=== PATIENT | female | born 1975 | race Caucasian/White ===

== ENCOUNTER 2025-08-07 08:52 | Outpatient (REF) | payer BC, SELFPAY ==
[2025-08-07 11:04] LABS: MANUAL DIFF FLAG NO
[2025-08-07 11:20] LABS: Hematocrit 43.3 % (37.0-47.0); Hemoglobin 14.8 g/dl (12.0-16.0); Imm Gran Abs Auto 0.01 X10*3/uL (0.00-0.03); Imm Gran Pct Auto 0.2 % (0.0-0.4); Lymphocytes Absolute Auto 1.7 X10*3/uL (1.2-4.9); Mean Corpuscular HGB Conc 34.2 g/dl (31.0-35.0); Mean Corpuscular Hemoglobin 30.1 pg (27.0-33.0); Mean Corpuscular Volume 88.2 fL (80.0-98.0); NRBC Abs Auto 0.000 X10*3/uL (0.0-0.012); NRBC Pct Auto 0.0 /100WBC (0.0-0.2); Platelet Count 313 X10*3/uL (160-400); Red Blood Count 4.91 X10*6/uL (4.20-5.50); White Blood Count 6.2 X10*3/uL (4.8-10.8)
[2025-08-07 12:12] LABS: Erythrocyte Sedimentation Rate 10 MM/HR (0-20)
[2025-08-07 12:23] LABS: Alanine Aminotransferase 16 U/L (0-31); Albumin Level 5.0 g/dL (3.5-5.0); Alkaline Phosphatase 65 U/L (39-117); Anion Gap 12 (12-20); Aspartate Amino Transferase 22 U/L (5-31); Blood Urea Nitrogen 8 mg/dL (9-16); Calcium 9.3 mg/dL (8.4-10.2); Carbon Dioxide 28 mmol/L (22-29); Chloride 104 mmol/L (96-108); Cholesterol 214 mg/dL (<200); Estimated Glomerular Filt Rate > 60; HDL Cholesterol 51 mg/dL (>40); Magnesium 2.3 mg/dL (1.6-2.6); Potassium 3.3 mmol/L (3.3-5.1); Sodium 141 mmol/L (135-145); Total Protein 7.9 g/dL (6.5-8.0); Triglycerides 83 mg/dL (<150)
[2025-08-07 12:31] LABS: Folate 10.9 ng/mL (> or = 4.0); Vitamin B12 463 pg/mL (200-900)
[2025-08-07 14:14] LABS: Appearance Urine Cloudy; Glucose Urine UA Negative (Negative); PH 6.0 (5.0-9.0); Specific Gravity - Urine 1.020 (1.005-1.025)
[2025-08-07 14:48] LABS: Microalbum/Creatinine Ratio Ur 12.8 ug/mg cr (<30)
[2025-08-08 06:18] LABS: Immunoglobulin A 145 mg/dL (47-310)
[2025-08-08 09:38] LABS: Lyme Abs Screen <0.90 index
[2025-08-08 21:03] LABS: Antibody to SS-A Antigen <1.0 NEG AI (<1.0 NEG); Antibody to SS-B Antigen <1.0 NEG AI (<1.0 NEG); Transglutaminase Ab IgG <1.0 U/mL
[2025-08-10 21:33] LABS: Anti Nuclear Antibody Screen NEGATIVE (NEGATIVE)
== END 2025-08-07 08:53 | disposition home or self-care (01) ==
LOC: HO.WFDLDS 08:52
PROVIDERS: PCP Physician Assistant; Visit Provider Physician Assistant
DX: R53.83 Other fatigue (principal); F41.1 Generalized anxiety disorder; F41.0 Panic disorder [episodic paroxysmal anxiety]; R19.7 Diarrhea, unspecified; R30.0 Dysuria; H04.129 Dry eye syndrome of unspecified lacrimal gland; M13.0 Polyarthritis, unspecified; K21.9 Gastro-esophageal reflux disease without esophagitis; J32.9 Chronic sinusitis, unspecified; B96.89 Other specified bacterial agents as the cause of diseases classified elsewhere; Z15.01 Genetic susceptibility to malignant neoplasm of breast; Z15.09 Genetic susceptibility to other malignant neoplasm; R14.0 Abdominal distension (gaseous); Z79.899 Other long term (current) drug therapy
CPT/HCPCS: 36415; 80053; 80061; 81003; 82043; 82570; 82607; 82746; 82784; 83735; 84443; 85025; 85652; 86038; 86140; 86231; 86235; 86364; 86431; 86617; 86618; 96127

== ENCOUNTER 2025-08-07 08:52 | Outpatient (AMB) | payer BC, SELFPAY ==
--- NOTE | 2025-08-07 08:58 | MHC.PC.OV ---
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 Note: New patient visit Peanut Sheller Required: No Allergies acetaminophen (From Percocet) Allergy (Severe, Verified 08/07/25 09:23) Vomiting codeine Allergy (Severe, Verified 08/07/25 09:23) Vomiting oxycodone (From Percocet) Allergy (Severe, Verified 08/07/25 09:23) Vomiting bioxin Allergy (Severe, Uncoded 08/07/25 09:23) Vomiting Medication List - Last Reconciled 08/07/25 by Naz Worrell PA-C escitalopram oxalate (Lexapro) 5 mg PO DAILY omeprazole 20 mg PO DAILY Tobacco use date assessed: 08/07/25 Dental Screening Dental Screen Date: 08/07/25 Did you have a dental visit in the last 12 months?: No Did you have a dental problem in the last 6 months where you did not have access to dental care?: No Was dental information given to patient?: Patient has dentist 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 She has a hx of ANJELICA gene, bilateral mastectomy, generalized anxiety, depression, gerd HEENT: Reports today that she has had sinus pain and pressure for the last week or so. It started with cold symptoms and then has seemed to settle into her sinuses. She reports maxillary sinus tenderness. No fevers or chills. She just does not feel like she is getting better. She has not really tried anything for her symptoms. She also reports dry eyes. She wonders if she could have Sjogren's as she saw an eye doctor a few years ago and they told her that that was a possibility but her only symptom at the time was dry eyes MSK: Does report that she has hip and knee pain and just overall feels achy in her joints. Breast: has a higher genetic risk of breast cancer and had a double mastectomy after having abnormal imaging of bilateral breasts but ultimately was not noted to have breast cancer.. Her aunt, mother, grandmother and cousin (maternal line) all have had breast cancer. Heme/onc: Has a higher risk of pancreatic ca and breast ca and following with [facility] and plans pancreatic screening summer 2025. She had 2 cousins with pancreatic cancer and as listed above multiple family members with breast cancer and her father had lung cancer. GI: She reports a history of IBS and GERD. She reports over the last few months having increased nausea and diarrhea with eating. The diarrhea is every day. Sometimes it feels like driving can even trigger the diarrhea. She is compliant with the omeprazole. Has not noticed any change in weight. She does feel bloated and does have some abdominal pain especially with the diarrhea. The pain seems to resolve with the diarrhea but the bloating does not improve. She has not tried any elimination diet. She has not noticed any blood or mucus in the stools. She can not recall the last time she had a normal bowel movement. She says that she has not been no difficulty swallowing. She does have a previous history of a cholecystectomy and a partial hysterectomy. She had a colonoscopy a few years ago with Keegan Palafox. She does wonder if some of this is caused by stress. Psych: she does have anxiety and depression and for the last few years. She lost her mother and father and then left bad relationship. She states that over the last 4 years she has had loss and change. Recently got this year and her has been has teenagers who moved into their house. She states that they are great but she does have some stress with this as she only previously at a 22-year-old son. She denies any SI/HI. She says that she just wakes up daily feeling stressed and anxious. She is following with a therapist in [place]. 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: s/p partial hysterectomy 2012 [facility] Surgical History (Updated 08/07/25 @ 09:10 by Rossy Caldwell CMA) H/O bilateral mastectomy H/O: hysterectomy Hx of cholecystectomy History of tonsillectomy Family History (Updated 08/07/25 @ 09:13 by Rossy Caldwell CMA) Father HTN (hypertension) High cholesterol Diabetes Cardiovascular disease Lung cancer Mother Breast cancer Paternal Grandmother Lung cancer Maternal Grandfather Cancer of kidney Breast cancer Social History (Updated 08/07/25 @ 09:14 by Rossy Caldwell CMA) Housing: House Alcohol intake: current Patient Tobacco Use Status: Never used Tobacco e-Cigarette/Vaping Use: Never Used Second Hand Smoke Exposure: No service: No Current occupational status: employed 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 1. Little interest or pleasure in doing things: not at all 2. Feeling down, depressed, or hopeless: more than half the days 3. Trouble falling or staying asleep, or sleeping too much: several days 4. Feeling tired or having little energy: several days 5. Poor appetite or overeating: not at all 6. Feeling bad about yourself - or that you are a failure or have let yourself or your family down: not at all 7. Trouble concentrating on things, such as reading the newspaper or watching television: not at all 8. Moving or speaking so slowly that other people could have noticed. Or the opposite - being so fidgety or restless that you have been moving around a lot more than usual: not at all 9. Thoughts that you would be better off or of hurting yourself in some way: not at all Total score: 4 Depression Screening Interpretation: Positive Depression Screening Follow-up: Existing condition, New Medication prescribed and Follow-up Visit Requested Depression Screening Done: Yes 31033 - PHQ-9 Billing: Yes Source: Developed by Drs. Fernie Lam, Aurora Day, Dru uHnter and colleagues, with an educational carlos from [employer]. Thrive Questionnaire Date Thrive assessed: 08/07/25 I am a: Patient What is your living situation today?: I have a steady place to live Within the past 12 months, did the food you bought not last and you didn't have the money to get more?: Never true Within the past 12 months, did you worry whether your food would run out before you got money to buy more?: Never true Do you have trouble paying for medicines?: No Do you have trouble getting transportation to medical appointments?: No Do you have trouble paying your heating and electricity bill?: No Do you have trouble taking care of your child, family member or friend?: No Do you have trouble with day-to-day activities such as bathing, preparing meals, shopping, managing finances, etc.?: No Are you currently unemployed and looking for a job?: No Are you interested in more education?: No Please select the resources that you would like help with: None Currently or been in a relationship where the following occur: I choose not to answer THRIVE Score: 0 AUDIT C Alcohol Use Questionnaire (AUDIT-C) 1. How often do you have a drink containing alcohol?: Monthly or less 2. How many drinks containing alcohol do you have on a typical day when you are drinking?: 3 or 4 3. How often do you have six or more drinks on one occasion?: Less than monthly Total Score: 3 MARLEY-7 AMB Questionnaire MARLEY-7 Date MARLEY - 7 assessed: 08/07/25 Feeling nervous, anxious, or on edge: 1 = Several days Not being able to stop or control worryin = Several days Worrying too much about different things: 1 = Several days Trouble relaxin = Several days Being so restless that it is hard to sit still: 0 = Not at all Becoming easily annoyed or irritable: 2 = More than half the days Feeling afraid as if something awful might happen: 2 = More than half the days Total MARLEY-7 score (0-4 normal; 5-9 mild; 10-14 moderate; 15-21 severe): 8 Source: Developed by Drs. Fernie Lam, Aurora Day, Dru Hunter and colleagues, with an educational carlos from [employer]. MARLEY-7 Assessment Billing MARLEY-7 Assessment Tool: MARLEY-7 Assessment 06763 Physical exam (Primary Care) Vital Signs: Last Vital Signs Temp 97.9 F 08/07/25 09:03 Pulse 83 08/07/25 09:03 Resp 14 08/07/25 09:03 BP 122/72 08/07/25 09:03 Pulse Ox 96 08/07/25 09:03 Oxygen Delivery Method Room Air 08/07/25 09:03 BMI result Body Mass Index 27.9 Tobacco/Smoking Status: Tobacco use Status Tobacco use date assessed 08/07/25 08/07/25 09:14 Patient Tobacco Use Status Never used Tobacco 08/07/25 09:14 e-Cigarette/Vaping Use Never Used 08/07/25 09:14 PHQ-9: PHQ-9 Score PHQ-9: Total score 4 08/07/25 09:14 Depression Screening Interpretation: Positive Depression Screening Follow-up: Existing condition, New Medication prescribed and Follow-up Visit Requested Thrive Assessment: Date of Thrive Assessment Date Thrive assessed 08/07/25 08/07/25 09:14 Currently or been in a relationship where the following occur: I choose not to answer Coding Level of Care Code New Pt Level 5 (09313) Complex EM visit Add On G2211 Diagnoses Diarrhea R19.7 Fatigue R53.83 Generalized anxiety disorder with panic attacks F41.1; F41.0 GERD (gastroesophageal reflux disease) K21.9 Dry eye syndrome H04.129 Polyarthropathy M13.0 Bacterial sinusitis J32.9; B96.89 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 Related to stress. Labs ordered. We will do a short term follow up in follow up pending test results. (3) Generalized anxiety disorder with panic attacks: Code(s): F41.1 - Generalized anxiety disorder; F41.0 - Panic disorder [episodic paroxysmal anxiety] Category: Medical Plan: As above. I have also started her on Lexapro. Discussed risks and benefits and adverse effects of this medication (4) GERD (gastroesophageal reflux disease): Code(s): K21.9 - Gastro-esophageal reflux disease without esophagitis Category: Medical (5) Dry eye syndrome: Code(s): H04.129 - Dry eye syndrome of unspecified lacrimal gland Category: Medical Plan: Labs ordered Follows with Ophthalmology (6) Polyarthropathy: Code(s): M13.0 - Polyarthritis, unspecified Category: Medical Plan: As above we will follow up pending test results (7) Bacterial sinusitis: Code(s): J32.9 - Chronic sinusitis, unspecified; B96.89 - Other specified bacterial agents as the cause of diseases classified elsewhere Plan: I will start her on doxycycline and Flonase. Discussed risks and benefits and adverse effects of this medication. She will follow up if anything worsens or changes. (8) ANJELICA gene mutation positive: Code(s): Z15.01 - Genetic susceptibility to malignant neoplasm of breast; Z15.09 - Genetic susceptibility to other malignant neoplasm Category: Medical Plan: following with heme/onc (9) Abdominal bloating: Code(s): R14.0 - Abdominal distension (gaseous) Category: Medical Plan: labs and imaging ordered Plan 65 minutes spent today in [id number] time, chart review and documentation. I have ordered labs, stool studies, imaging and placed referrals. I have also started 3 medications and refilled omeprazole. Orders: Orders Comprehensive [place]. Panel Fast Today F41.0 - Panic disorder [episodic paroxysmal anxiety], F41.1 - Generalized anxiety disorder, R19.7 - Diarrhea, unspecified, R53.83 - Other fatigue Magnesium Today F41.0 - Panic disorder [episodic paroxysmal anxiety], F41.1 - Generalized anxiety disorder, R19.7 - Diarrhea, unspecified, R53.83 - Other fatigue UA CC w/rflx Micro + Cult Today F41.0 - Panic disorder [episodic paroxysmal anxiety], F41.1 - Generalized anxiety disorder, R19.7 - Diarrhea, unspecified, R30.0 - Dysuria, R53.83 - Other fatigue Lyme IgG/IgM w/reflex to WB Today H04.129 - Dry eye syndrome of unspecified lacrimal gland, M13.0 - Polyarthritis, unspecified Rheumatoid Factor Today H04.129 - Dry eye syndrome of unspecified lacrimal gland, M13.0 - Polyarthritis, unspecified US abdomen complete Today R10.9 - Unspecified abdominal pain, R14.0 - Abdominal distension (gaseous) Calprotectin, Fecal Today F41.0 - Panic disorder [episodic paroxysmal anxiety], F41.1 - Generalized anxiety disorder, R19.7 - Diarrhea, unspecified, R53.83 - Other fatigue Erythrocyte Sedimentation Rate Today F41.0 - Panic disorder [episodic paroxysmal anxiety], F41.1 - Generalized anxiety disorder, R19.7 - Diarrhea, unspecified, R53.83 - Other fatigue C Reactive Protein Today F41.0 - Panic disorder [episodic paroxysmal anxiety], F41.1 - Generalized anxiety disorder, R19.7 - Diarrhea, unspecified, R53.83 - Other fatigue Endomysial IgA rflx Titer Today F41.0 - Panic disorder [episodic paroxysmal anxiety], F41.1 - Generalized anxiety disorder, R19.7 - Diarrhea, unspecified, R53.83 - Other fatigue Immunoglobulin A Today F41.0 - Panic disorder [episodic paroxysmal anxiety], F41.1 - Generalized anxiety disorder, R19.7 - Diarrhea, unspecified, R53.83 - Other fatigue Transglutaminase Ab IgG Today F41.0 - Panic disorder [episodic paroxysmal anxiety], F41.1 - Generalized anxiety disorder, R19.7 - Diarrhea, unspecified, R53.83 - Other fatigue Complete Blood Count Auto Diff Today F41.0 - Panic disorder [episodic paroxysmal anxiety], F41.1 - Generalized anxiety disorder, R19.7 - Diarrhea, unspecified, R53.83 - Other fatigue TSH reflex Free T4 Today F41.0 - Panic disorder [episodic paroxysmal anxiety], F41.1 - Generalized anxiety disorder, R19.7 - Diarrhea, unspecified, R53.83 - Other fatigue Vitamin B12 and Folate Today F41.0 - Panic disorder [episodic paroxysmal anxiety], F41.1 - Generalized anxiety disorder, R19.7 - Diarrhea, unspecified, R53.83 - Other fatigue Lipid Panel Today F41.0 - Panic disorder [episodic paroxysmal anxiety], F41.1 - Generalized anxiety disorder, R19.7 - Diarrhea, unspecified, R53.83 - Other fatigue Microalbumin, Random (w Creat) Today F41.0 - Panic disorder [episodic paroxysmal anxiety], F41.1 - Generalized anxiety disorder, R19.7 - Diarrhea, unspecified, R53.83 - Other fatigue Sjogren's Antibodies Today H04.129 - Dry eye syndrome of unspecified lacrimal gland, M13.0 - Polyarthritis, unspecified DAV Reflex Titer and Pattern Today H04.129 - Dry eye syndrome of unspecified lacrimal gland, M13.0 - Polyarthritis, unspecified US pelvic and transvaginal Today R10.9 - Unspecified abdominal pain, R14.0 - Abdominal distension (gaseous) Referrals Gastroenterology Referral K21.9 - Gastro-esophageal reflux disease without esophagitis, R19.7 - Diarrhea, unspecified Medications: New escitalopram oxalate (Lexapro) 5 mg PO DAILY 90 tabs 0RF fluticasone propionate 50 mcg/actuation (Flonase Allergy Relief) administer into each nostril 1 spray intranasal BID 16 grams 0RF doxycycline hyclate 100 mg PO BID 20 tabs 0RF omeprazole 20 mg PO DAILY 90 caps 3RF
[2025-08-07 09:03] VITALS: BP 122/72; PULSE 83; RESP 14; TEMP 36.6; O2SAT 96; BMI 27.9
== END 2025-08-07 09:42 | disposition home or self-care (01) ==
LOC: HO.HMCFM 08:53
PROVIDERS: PCP Physician Assistant; Visit Provider Physician Assistant
DX: F41.1 Generalized anxiety disorder (principal); R53.83 Other fatigue; R19.7 Diarrhea, unspecified; R14.0 Abdominal distension (gaseous); F41.0 Panic disorder [episodic paroxysmal anxiety]; K21.9 Gastro-esophageal reflux disease without esophagitis; H04.129 Dry eye syndrome of unspecified lacrimal gland; M13.0 Polyarthritis, unspecified; J32.9 Chronic sinusitis, unspecified; B96.89 Other specified bacterial agents as the cause of diseases classified elsewhere; Z15.01 Genetic susceptibility to malignant neoplasm of breast; Z15.09 Genetic susceptibility to other malignant neoplasm